=== PATIENT | female | born 1985 | race Caucasian/White ===

== ENCOUNTER 2017-03-07 08:29 | Emergency (ER) | payer OTHER ==
[~2017-03-07] VITALS: Ht 157.5 cm; Wt 57.0 kg
[2017-03-07] MEDS ORDERED: ACETAMINOPHEN 325MG TABLET PO ONE (10:45)
[2017-03-07 11:15] LABS: CARBON DIOXIDE 27 mEq/L (21-32); CHLORIDE 104 mEq/L (98-107)
[2017-03-07 11:26] LABS: B-HCG QUANTITATIVE 65358 mIU/mL (<3)
[2017-03-07 11:52] LABS: CLARITY URINE CLEAR (CLEAR); COLOR URINE YELLOW (YELLOW); GLUCOSE URINE 1+ (NEGATIVE); KETONES URINE TRACE (NEGATIVE); LEUKOCYTE ESTERASE URINE NEGATIVE (NEGATIVE); NITRITE URINE NEGATIVE (NEGATIVE); OCCULT BLOOD URINE NEGATIVE (NEGATIVE); PH URINE 5.5 (4.5-8.0); PROTEIN URINE NEGATIVE (NEGATIVE); SPECIFIC GRAVITY URINE 1.023 (1.005-1.030); UROBILINOGEN URINE 0.2 E.U./dL (0.2-1.0)
[2017-03-07 12:00] VITALS: BP 125/81
[2017-03-07 13:24] LABS: HEMATOCRIT. 39.1 % (36.0-48.0); HEMOGLOBIN. 13.1 g/dL (12.0-16.0); MEAN CORPUSCULAR HEMOGLOBIN 30.3 pg (28.0-32.0); MEAN CORPUSCULAR VOLUME 90.2 fL (81.0-99.0); MEAN PLATELET VOLUME 9.4 fl (7.4-10.4); PLATELET 211 x1000/uL (130-400); RED BLOOD CELL COUNT 4.33 mill/uL (4.2-5.4); RED CELL DISTRIBUTION WIDTH 12.5 % (11.6-14.6)
[2017-03-07 13:42] LABS: PLATELET ESTIMATE NORMAL
== END 2017-03-07 13:45 | disposition home or self-care (01) ==
LOC: ER 10:46
DX: O26.891 Other specified pregnancy related conditions, first trimester (principal); H66.91 Otitis media, unspecified, right ear; H60.8X1 Other otitis externa, right ear; R10.9 Unspecified abdominal pain; Z3A.08 8 weeks gestation of pregnancy
CPT/HCPCS: 36415; 76801; 80053; 81001; 81025; 84702; 85025; 86886; 99285